=== PATIENT | male | born 1995 | race Caucasian/White ===

== ENCOUNTER 2023-03-09 20:28 | Emergency (ER) | payer BC ==
[2023-03-09] MEDS ORDERED: Ondansetron 4 MG Tab.DIS PO ONE (22:04)
[2023-03-09 22:15] LABS: BASOPHILS ABSOLUTE AUTO 0.05 K/uL (0.00-0.10); BASOPHILS PERCENT AUTO 0.8 % (0.1-1.3); EOSINOPHILS ABSOLUTE AUTO 0.13 K/uL (0.00-0.40); EOSINOPHILS PERCENT AUTO 2.2 % (0.0-5.4); HEMOGLOBIN 14.6 g/dL (12.9-16.9); IMMATURE GRAN PERCENT AUTO 0.2 % (0.0-0.7); LYMPHOCYTES ABSOLUTE AUTO 0.49 K/uL (0.8-3.3); LYMPHOCYTES PERCENT AUTO 8.3 % (11.4-47.7); MEAN CORPUSCULAR HEMOGLOBIN 31.2 pg (31.6-35.5); MEAN CORPUSCULAR HGB CONC 34.8 g/dL (31.6-35.5); MEAN CORPUSCULAR VOLUME 89.7 fL (81.4-99.0); MONOCYTES ABSOLUTE AUTO 0.85 K/uL (0.20-0.90); MONOCYTES PERCENT AUTO 14.4 % (3.3-12.6); NEUTROPHILS ABSOLUTE AUTO 4.39 K/uL (1.0-7.6); NEUTROPHILS PERCENT AUTO 74.1 % (40.0-78.1); PLATELET COUNT,PLT 196 K/uL (130-375); RED BLOOD CELL COUNT 4.68 M/uL (4.14-5.76); WHITE BLOOD CELL COUNT,WBC 5.9 K/uL (3.2-11.0)
[2023-03-09 22:16] LABS: IMMATURE GRAN ABSOLUTE AUTO 0.01 K/uL (0.00-0.23)
[2023-03-09 22:35] LABS: A/G RATIO 1.3 (1.2-2.2); ALANINE AMINOTRANSFERASE,ALT 52 U/L (12-78); ALKALINE PHOSPHATASE 87 U/L (46-116); ANION GAP 8.3 mmol/L (5.0-14.0); ASPARTATE AMNIOTRANSFERASE,AST 23 U/L (15-37); BILIRUBIN TOTAL 0.4 mg/dL (0.2-1.0); BLOOD UREA NITROGEN,BUN 15 mg/dL (7-18); CALCIUM 8.9 mg/dL (8.5-10.1); CARBON DIOXIDE,CO2 28 mmol/L (21-32); CHLORIDE,CL 106 mmol/L (100-108); CREATININE 1.3 mg/dL (0.8-1.3); EST CRCL DRUG DOSING (CG) 75.66 mL/min; ESTIMATED GFR 76 mL/min (>60); GLUCOSE RANDOM 100 mg/dL (74-106); POTASSIUM,K 3.8 mmol/L (3.6-5.2); PROTEIN TOTAL,TP 7.1 g/dL (6.4-8.2); SODIUM,NA 142 mmol/L (140-148)
== END 2023-03-09 23:45 | disposition home or self-care (01) ==
LOC: JP.ED 20:28
DX: U07.1 COVID-19 (principal); Z88.1 Allergy status to other antibiotic agents
CPT/HCPCS: 36415; 80053; 84145; 85025; 87635; 87651; 99283; Q0162; U0002

== ENCOUNTER 2024-11-26 22:28 | Emergency (ER) | payer BC ==
[2024-11-26] MEDS ORDERED: Sodium Chloride 0.9% 10 ML Syringe FLUSH PRN (22:56)
[2024-11-26 23:07] LABS: BASOPHILS ABSOLUTE AUTO 0.04 K/uL (0.00-0.10); BASOPHILS PERCENT AUTO 0.3 % (0.1-1.3); EOSINOPHILS ABSOLUTE AUTO 0.08 K/uL (0.00-0.40); EOSINOPHILS PERCENT AUTO 0.6 % (0.0-5.4); HEMATOCRIT 49.1 % (38.4-49.7); HEMOGLOBIN 17.2 g/dL (12.9-16.9); IMMATURE GRAN ABSOLUTE AUTO 0.08 K/uL (0.00-0.23); IMMATURE GRAN PERCENT AUTO 0.6 % (0.0-0.7); LYMPHOCYTES ABSOLUTE AUTO 0.56 K/uL (0.8-3.3); LYMPHOCYTES PERCENT AUTO 3.9 % (11.4-47.7); MEAN CORPUSCULAR HEMOGLOBIN 31.4 pg (31.6-35.5); MEAN CORPUSCULAR VOLUME 89.8 fL (81.4-99.0); MONOCYTES ABSOLUTE AUTO 0.76 K/uL (0.20-0.90); MONOCYTES PERCENT AUTO 5.3 % (3.3-12.6); NEUTROPHILS ABSOLUTE AUTO 12.81 K/uL (1.0-7.6); NEUTROPHILS PERCENT AUTO 89.3 % (40.0-78.1); PLATELET COUNT,PLT 257 K/uL (130-375); RED BLOOD CELL COUNT 5.47 M/uL (4.14-5.76); WHITE BLOOD CELL COUNT,WBC 14.3 K/uL (3.2-11.0)
[2024-11-26] MEDS: Ondansetron 4 MG/2 ML SDV IVPUSH ONE (23:07)
[2024-11-26] MEDS: Lactated Ringers 1,000 ML IV ONE (23:07)
[2024-11-26 23:28] LABS: A/G RATIO 1.2 (1.2-2.2); ALANINE AMINOTRANSFERASE,ALT 90 U/L (12-78); ALBUMIN 4.4 g/dL (3.4-5.0); ALKALINE PHOSPHATASE 67 U/L (46-116); ANION GAP 12.9 mmol/L (5.0-14.0); ASPARTATE AMNIOTRANSFERASE,AST 34 U/L (15-37); BLOOD UREA NITROGEN,BUN 21 mg/dL (7-18); CALCIUM 9.9 mg/dL (8.5-10.1); CARBON DIOXIDE,CO2 25 mmol/L (21-32); CHLORIDE,CL 103 mmol/L (100-108); CREATININE 1.6 mg/dL (0.8-1.3); EST CRCL DRUG DOSING (CG) 56.53 mL/min; ESTIMATED GFR 59 mL/min (>60); GLUCOSE RANDOM 134 mg/dL (74-106); POTASSIUM,K 4.7 mmol/L (3.6-5.2); SODIUM,NA 141 mmol/L (140-148)
[2024-11-27] MEDS: Lactated Ringers 1,000 ML IV ONE (00:05)
== END 2024-11-27 01:15 | disposition home or self-care (01) ==
LOC: JP.ED 22:28
DX: K52.9 Noninfective gastroenteritis and colitis, unspecified (principal); Z88.8 Allergy status to other drugs, medicaments and biological substances
CPT/HCPCS: 36415; 80053; 83605; 85025; 96361; 96374; 99284-25; J2405; J7120

== ENCOUNTER 2025-07-04 18:28 | Emergency (ER) | payer BC ==
[2025-07-04] MEDS: Ketorolac 30 MG/ML SDV IM ONE (19:22)
== END 2025-07-04 20:24 | disposition home or self-care (01) ==
LOC: JP.ED 18:28
DX: M62.830 Muscle spasm of back (principal); Z86.16 Personal history of COVID-19; Z88.1 Allergy status to other antibiotic agents
CPT/HCPCS: 72100; 96372; 99283; A9270; J1885